=== PATIENT | female | born 1980 | race Caucasian/White ===

== ENCOUNTER 2017-05-30 14:48 | Emergency (ER) | payer MEDICAID ==
[~2017-05-30] VITALS: Ht 157.5 cm; Wt 62.4 kg
[2017-05-30 14:52] VITALS: BP 107/73; Ht 157.5 cm; Wt 62.4 kg
== END 2017-05-30 17:39 | disposition left against medical advice (07) ==
LOC: ED 14:48
DX: H57.11 Ocular pain, right eye (principal); Z53.21 Procedure and treatment not carried out due to patient leaving prior to being seen by health care provider

== ENCOUNTER 2020-03-14 14:29 | Emergency (ER) | payer MEDICAID, SELFPAY ==
[~2020-03-14] VITALS: Ht 157.5 cm; Wt 64.4 kg
[2020-03-14 14:30] VITALS: Ht 157.5 cm; Wt 64.4 kg
[2020-03-14 16:56] VITALS: BP 99/66
== END 2020-03-14 16:56 | disposition home or self-care (01) ==
LOC: ED 14:29
DX: R43.9 Unspecified disturbances of smell and taste (principal); R06.02 Shortness of breath; R07.89 Other chest pain; G43.909 Migraine, unspecified, not intractable, without status migrainosus; Z20.828 Contact with and (suspected) exposure to other viral communicable diseases; Z90.49 Acquired absence of other specified parts of digestive tract
CPT/HCPCS: U0003-CS